=== PATIENT | male | born 1945 | race Caucasian/White ===

== ENCOUNTER → 2022-09-26 12:30 | Outpatient (BNVA) | payer MEDICARE, OTHER, SELFPAY | PROVIDERS: PCP Family Medicine; Referring Provider Family Medicine; Visit Provider Internal Medicine Cardiovascular Disease | DX: I48.0 Paroxysmal atrial fibrillation (principal); R07.9 Chest pain, unspecified | CPT/HCPCS: 93005; 99203 ==

== ENCOUNTER 2022-09-26 12:33 | Outpatient (CLI) | payer MEDICARE, OTHER, SELFPAY ==
--- NOTE | 2022-09-26 12:30 | RT.EKG_ITS ---
APPROVED REPORT Exam: Resting ECG Reason for Exam: new pt afib Patient Location: O HR:81 bpm ECG Measurements Heart Rate 81 AXIS TX 222 P 41 QRSd 120 QRS 37 QT 354 T 12 QTc 411 Conclusion Sinus rhythm...normal P axis, V-rate 50- 99 Borderline first-degree AV block Nonspecific intraventricular conduction delay...QRSd >115mS, not LBBB/RBBB No change from 2020 EKG
== END 2022-09-26 12:34 | disposition home or self-care (01) ==
LOC: DI.CARD 12:34
PROVIDERS: PCP Family Medicine; Visit Provider Internal Medicine Cardiovascular Disease
DX: I48.20 Chronic atrial fibrillation, unspecified (principal); I44.0 Atrioventricular block, first degree
CPT/HCPCS: 93010

== ENCOUNTER 2023-01-09 09:27 | Day surgery (SDC) | payer MEDICARE, OTHER, SELFPAY ==
[2023-01-09 10:00] VITALS: BP 131/83; PULSE 77; RESP 16; TEMP 36.7; O2SAT 97
[2023-01-09] MEDS: Tropicam./Phenyleph. (1/2.5%) 5 ML BTL OD ×3 (10:20→10:27)
--- NOTE | 2023-01-09 11:00 | ANES.PREOP_ITS ---
General Info Date of Service Date Performed: 01/09/23 Height: 5 ft 11 in Weight: 124.5 kg Body Mass Index (BMI): 38.2 Surgical Procedure: Operation Date: 01/09/23 12:40 Proposed Procedure Side Surgeon p Cataract Extraction with IOL Implant Right Ricky Rojas MD Meds Allergies and Home Medications Allergies Allergy/AdvReac Type Severity Reaction Status Date / Time naproxen Allergy Mild Other (See Unverified 01/09/23 10:05 Comment) prochlorperazine Allergy Mild Other (See Unverified 01/09/23 10:05 Comment) Home Medication Medication Instructions Recorded acetaminophen 325 mg capsule 650 mg PO Q6H PRN 05/23/22 aspirin 81 mg tablet,delayed 81 mg PO DAILY 05/23/22 release (Adult Low Dose Aspirin) bupropion HCl 150 mg tablet,12 hr 150 mg PO BID 05/23/22 sustained-release (Wellbutrin SR) diltiazem HCl 180 mg 180 mg PO DAILY 05/23/22 capsule,extended release 24 hr ferrous sulfate 325 mg (65 mg 325 mg PO DAILY 05/23/22 iron) tablet fluoxetine 20 mg capsule 60 mg PO DAILY 05/23/22 glucosamine-chondroitin 500 mg-400 1 tab PO BID 05/23/22 mg tablet nitroglycerin 0.4 mg sublingual 0.4 mg sublingual Q5M PRN 05/23/22 tablet omeprazole 40 mg capsule,delayed 40 mg PO DAILY 05/23/22 release oxybutynin chloride 10 mg 10 mg PO DAILY 05/23/22 tablet,extended release 24 hr saw palmetto 450 mg capsule 450 mg PO BID 05/23/22 testosterone cypionate 200 mg/mL 200 mg IM Q2W 05/23/22 intramuscular oil warfarin 5 mg tablet 7.5 mg PO DAILY 05/23/22 amoxicillin 500 mg capsule 2,000 mg PO ONCE 12/07/22 calcium carb-vit D3-minerals 600 1 tab PO BID 12/07/22 mg calcium-400 unit tablet vitamin B complex 1 cap PO DAILY 12/07/22 cascara sagrada PO .po 12/08/22 tamsulosin 0.4 mg capsule 0.4 mg PO DAILY 12/08/22 Current Visit Medications: Current Medications Generic Name Dose Route Start Last Admin Trade Name Freq PRN Reason Stop Dose Admin Acetaminophen 1,000 mg 01/09/23 08:38 Acetaminophen 500 Mg Tab PO Q4H PRN PRN Miscellaneous Medication 0 ml 01/09/23 08:38 01/09/23 10:27 Tropicam./Phenyleph. 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 Was checked in 2020, was told he didn't needto be rechecked for another 5 years. BPH w urinary obs/LUTS Chest pain chest pain at rest pt. stated was muscular not cardiac related. 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, involving the body (corpus) Glucose intolerance (impaired glucose tolerance) Klinefelter syndrome correction current use of anticoagulant Obesity AZRA (obstructive sleep apnea) Osteoporosis Phlebosclerosis Plantar nerve lesion Tremor Urinary incontinence Varicosities of leg Surgical History Surgical History H/O esophagogastroduodenoscopy H/O hernia repair Hx of total knee arthroplasty bi-lateral; 2020 and 2021 Tobacco Smoking/Tobacco Use Status: Former Tobacco Use Alcohol Alcohol Intake: former Substance Use Substance use type: does not use Vital Signs and Lab Results Vital Signs Most Recent Vital Signs in EMR: Most Recent Vital Signs Temp Pulse Resp BP Pulse Ox 36.7 C 77 16 131/83 97 01/09/23 10:00 01/09/23 10:00 01/09/23 10:00 01/09/23 10:00 01/09/23 10:00 Lab Results Blood Type / Crossmatch: No Data to Display Complete Blood Count: No Data to Display Complete Metabolic Panel: No Data to Display Liver Function Panel: No Data to Display Coagulation Panel: No Data to Display Cardiac Panel: No Data to Display Arterial Blood Gas: No Data to Display Venous Blood Gas: No Data to Display Pancreas Panel: No Data to Display Thyroid Panel: No Data to Display Infectious Disease: No Data to Display Blood Cultures: No Data to Display Toxicology Panel: No Data to Display Imaging and Studies Imaging and Studies Study information below may be from another EMR and interpreted by another provider. Please see original notes in EMR for more complete details. EKG Summary: 09/26/2022: Exam: Resting ECG Reason for Exam: new pt afib Patient Location: O HR:81 bpm ECG Measurements Heart Rate 81 AXIS AR 222 P 41 QRSd 120 QRS 37 QT 354 T12 QTc 411 Conclusion Sinus rhythm...normal P axis, V-rate 50- 99 Borderline first-degree AV block Nonspecific intraventricular conduction delay...QRSd >115mS, not LBBB/RBBB No change from 2020 EKG Anesthesia Assessment and Plan Anesthesia History Personal History: No History of Anesthesia Complications Family History: No Family History of Anesthesia Complications Exercise Tolerance Exercise Tolerance: Metabolic Equivalents>4 Cardiac & Pulmonary Exam Cardiac Exam: Normal S1/S2 Heart Sounds Pulmonary Exam: Clear Bilateral Breath Sounds Implantable Cardiac Device Does patient have a Pacemaker or an ICD?: No Airway Exam Known Difficult Airway: No Mallampati Class: 2 Mouth Opening: Normal (> 3cm) Thyromental Distance: Greater than 3 cm Neck Range of Motion: Full ROM Neck Circumference: Normal Teeth Condition: Generalized Poor Dentition ASA Classification ASA Score: ASA 3 Emergency Case?: No NPO Status NPO Status: NPO Clears >2 hours, Solids >8 hours Anesthesia Plan Resuscitation Status: Full Code Anesthesia Technique: MAC Anesthesia Airway Planned: Natural Airway Monitors Used: Standard Monitors
[2023-01-09 11:03] VITALS: BMI 38.2
[2023-01-09] MEDS: Balanced Salt Soln.-PLUS 500 ML BAG (11:46)
[2023-01-09] MEDS: Lidocaine 1% Pres-Free 5 ML VIAL (11:48)
[2023-01-09] MEDS: Duovisc Viscoelastic System EACH 1 EACH (11:48)
[2023-01-09] MEDS: Phenylephrine/Lidocaine (15/10) MG/ML 1 ML VIAL (11:50)
[2023-01-09] MEDS: Povidone-Iodine Ophth 30 ML BTL (11:51)
[2023-01-09] MEDS: Tetracaine 0.5% 4 ML BTL OD (12:01)
[2023-01-09 12:10] VITALS: BP 147/96; PULSE 81; RESP 16; TEMP 36.5; O2SAT 96
--- NOTE | 2023-01-09 12:11 | W.PM.DSUDISC ---
Date of service: 01/09/23 Time of Service: 12:12 Discharge Plan Disposition Patient Disposition: Home Discharge Details Attending Provider: Ricky Rojas Primary Care Provider: Jignesh Luna [place] Meds and New Rx's Prescriptions: No Action amoxicillin 500 mg capsule 2,000 mg PO ONCE Rx Instructions: 1 hour prior to dental appointment vitamin B complex Capsule 1 cap PO DAILY cascara sagrada PO .po tamsulosin 0.4 mg capsule 0.4 mg PO DAILY warfarin 5 mg tablet 7.5 mg PO DAILY acetaminophen 325 mg capsule 650 mg PO Q6H PRN aspirin [Adult Low Dose Aspirin] 81 mg tablet,delayed release (DR/EC) 81 mg PO DAILY bupropion HCl [Wellbutrin SR] 150 mg tablet sustained-release 12 hr 150 mg PO BID glucosamine-chondroitin 500-400 mg tablet 1 tab PO BID testosterone cypionate 200 mg/mL oil 200 mg IM Q2W diltiazem HCl 180 mg capsule,extended release 24hr 180 mg PO DAILY ferrous sulfate 325 mg (65 mg iron) tablet 325 mg PO DAILY fluoxetine 20 mg capsule 60 mg PO DAILY nitroglycerin 0.4 mg tablet, sublingual 0.4 mg sublingual Q5M PRN Rx Instructions: do not exceed 3 doses per episode omeprazole 40 mg capsule,delayed release(DR/EC) 40 mg PO DAILY oxybutynin chloride 10 mg tablet extended release 24hr 10 mg PO DAILY saw palmetto 450 mg capsule 450 mg PO BID Rx Instructions: give with food (meal/snack) calcium carbonate-vit D3-min 600 mg calcium- 400 unit tablet 1 tab PO BID Discharge Instructions Stand Alone Forms: Post-op Block Cataract, Post-op Topical Cataract, Wilman Poeey (DSU) Discharge Orders Discharge Orders: Discharge Order (Routine); Ordered 01/09/23 Ordered By: Ricky Rojas DS: Diagnosis Discharge Diagnosis (1) Posterior subcapsular age-related cataract, right eye: Status: Resolved (2) Nuclear age-related cataract, right eye: Status: Resolved
--- NOTE | 2023-01-09 12:12 | ROE_ITS ---
Date of service: 01/09/23 Time of Service: 12:12 Operative Note Operative Note DATE OF PROCEDURE: 01/09/23 PRE-OP DIAGNOSIS: Nuclear/posterior subcapsular cataract, right eye Pseudoexfoliation, right eye Poorly dilating pupil, right eye POST-OP DIAGNOSIS: same PROCEDURE: Cataract extraction using phacoemulsification with intraocular lens implant, right eye SURGEON: Ricky Rojas ANESTHESIA TYPE: Local By Surgeon and MAC Refer to Anesthesia Record ESTIMATED BLOOD LOSS: 0 PATHOLOGY: none sent COMPLICATIONS: None Patient was transported to: same day Patient's condition: stable Implants: Carlos Enrique Clareon [id number] Indications: Progressive decreased vision due to cataract, right eye Procedure Description: CATARACT SURGERY OPERATIVE REPORT PREOPERATIVE DIAGNOSIS: Nuclear/posterior subcapsular cataract, right eye Pseudoexfoliation, right eye Poorly dilating pupil, right eye POSTOPERATIVE DIAGNOSIS: Same OPERATION: Cataract extraction using phacoemulsification with posterior chamber intraocular lens implant, right eye. Pupillary dilation and iris stabilization with 7.0 mm pupillary expansion device Insertion of capsular tension ring, Morcher Type 15 IOL: IOL Machine Puller/Model: Carlos Enrique Clareon [id number] IOL Power: + 23.5 diopters IOL Serial Number: [id number] Optic Diameter: 6.0mm Haptic/Overall Diameter: 13.0mm PHACO INFO: Carlos Enrique Centurion Vision System with OZil and Active Fluidics Cumulative Dispersed Energy (CDE): 10.45 seconds SURGEON: Ricky Rojas MD, MITUL ANESTHESIA: Monitored Anesthesia Care (MAC), with local sub-tenon's anesthetic infiltration COMPLICATIONS: None SPECIMENS: None INDICATIONS FOR PROCEDURE: The patient is a 77-year-old gentleman with history of diminished visual acuity in his right eye secondary to the development of nuclear/posterior subcapsular cataract. 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 The option of cataract surgery was offered to the patient and he wished to proceed. PROCEDURE: The correct surgical eye was identified and marked as the right eye and the pupil was dilated in the preoperative area using mydriatics and cycloplegics. The dilated pupil size was 4.0 mm. The patient elected to proceed without oral sedation. The patient was brought to the operating room where cardiopulmonary monitoring was instituted and surgical time-out was per formed, confirming the correct operative eye and IOL power. Topical anesthesia was administered and ophthalmic povidone-iodine 5% was instilled into the conjunctival fornices. Lidocaine gel was applied to the cornea and the tyrell-ocular area was prepped with Betadine 10% solution and draped in the usual sterile fashion for intraocular surgery, including an aperture drape. A Tegaderm transparent film dressing was cut in half and used to cover the lashes and lid margins. Care was taken to sequester the lashes and lid margins under the Tegaderm dressing. A lid speculum was placed between the lids of the operative eye and the Yasmin-Annia operating microscope was maneuvered into position. Noe scissors were then used to make a conjunctival buttonhole approximately 6mm posterior to the limbus in the inferonasal quadrant. Blunt dissection was carried out to expose bare sclera, and a blunt-tipped sub-tenon?s anesthesia cannula was introduced and passed posteriorly along the globe where non- preserved plain lidocaine was injected into posterior sub-Tenon?s space. A sideport knife was used to make a paracentesis port inferiortemporally. Intraocular phenylephrine/lidocaine was injected into the anterior chamber. The anterior chamber was then filled with viscoelastic. A keratome knife was used to construct a two--plane near-clear corneal tunnel extending 2.0mm into clear cornea in the superiortemporal position.. A 7.0 mm pupillary expansion device was inserted into the pupillary space and engaged with the Kuglen hook. A flap was raised on the anterior capsule and capsulorhexis forceps were used to complete a continuous curvilinear capsulorhexis of 5.0 mm. The anterior capsule was noted to be quite thin. A significant amount of capsular wrinkling was noted during capsulorrhexis creation, indicating moderate to severe generalized zonular laxity. Balanced salt solution was then used to perform cortical cleaving hydrodissection and nuclear hydrodelineation until the lens could be freely rotated within the capsular bag. The lens nucleus was then disassembled and removed within the capsular bag and iris plane using phacoemulsification. Residual cortical material was removed using the I/A handpiece. The posterior capsule was carefully polished to remove as much residual lens epithelial cells as safely possible. The capsular bag was then inflated and the anterior chamber deepened with viscoelastic. A Morcher Type 15 capsular tension ring was then inserted into the capsular bag without difficulty, to prevent capsular phimosis postoperatively. The lens implant described above was inserted into the capsular bag using the Carlos Enrique Autonome Injector. A Kuglen hook was used to dial the IOL into position. The pupillary expansion device was removed in the r everse order of its insertion. Residual viscoelastic was then removed first from posterior to the IOL, then from the anterior chamber using the I/A handpiece. The lens implant was noted to center nicely within the capsular bag. The incisions were stromally hydrated, and the anterior chamber was reformed using BSS. Then 0.5cc of moxifloxacin 1.0mg/ml were injected into the capsular bag and anterior chamber. The incisions were checked with a Weck spear and found to be secure. Several drops of ophthalmic povidone-iodine 5% were then applied to the eye followed by two drops of Imprimis combination prednisolone/moxifloxacin/nepafenac solution. The drapes were removed and a clear plastic protective eye shield was placed over the eye. The patient was then returned to Same Day Surgery in stable condition.
--- NOTE | 2023-01-09 12:29 | W.ANESPOSTOP ---
Postoperative Evaluation Date, Time and Location Date Performed: 01/09/23 Time Performed: 12:29 Patient Location: Day Surgery Unit Vital Signs Most Recent Imported Vital Signs: Most Recent Vital Signs Temp Pulse Resp BP Pulse Ox 36.7 C 77 16 131/83 97 01/09/23 10:00 01/09/23 10:00 01/09/23 10:00 01/09/23 10:00 01/09/23 10:00 Most Recent Manually Entered Vital Signs: Adult Blood Pressure: 147/96 Heart Rate: 81 Respirations: 16 Oxygen Saturation (%): 96 Temperature (C): 36.5 C Pain Score (0-10 Scale): 0 Assessment Mental Status: Awake (Alert & Oriented to Patient Baseline) Airway and Respiratory Function: Patent airway with normal (patient baseline) respiratory exam Cardiovascular Function: Hemodynamically Stable Hydration Status: Adequately Hydrated Nausea & Vomiting: No Nausea or Vomiting Pain: Pt. Denies Any Pain Peripheral Nerve Block: Patient did not receive a nerve block
[2023-01-09 13:30] VITALS: BP 147/96; PULSE 81; RESP 16; TEMPC 36.5; O2SAT 96
== END 2023-01-09 13:00 | disposition home or self-care (01) ==
PROVIDERS: PCP Family Medicine; Visit Provider Ophthalmology
PROC: (CPT 66982; principal; 2023-01-09 12:30)
DX: H25.041 Posterior subcapsular polar age-related cataract, right eye (principal); H25.11 Age-related nuclear cataract, right eye; H57.09 Other anomalies of pupillary function
CPT/HCPCS: 66982; V2632

== ENCOUNTER 2023-07-17 10:53 | Day surgery (SDC) | payer MEDICARE, OTHER, SELFPAY ==
[2023-07-17] MEDS: Tropicam./Phenyleph. (1/2.5%) 5 ML BTL OS ×3 (11:38→11:56)
[2023-07-17 11:40] VITALS: BP 137/83; PULSE 88; RESP 20; TEMP 36.6; O2SAT 96
--- NOTE | 2023-07-17 11:55 | ANES.PREOP_ITS ---
General Info Date of Service Date Performed: 07/17/23 Height: 5 ft 10 in Weight: 125.1 kg Body Mass Index (BMI): 39.5 Surgical Procedure: Operation Date: 07/17/23 12:55 Proposed Procedure Side Surgeon p Cataract Extraction with IOL Implant Left Ricky Rojas MD Meds Allergies and Home Medications Allergies Allergy/AdvReac Type Severity Reaction Status Date / Time naproxen Allergy Mild Other (See Unverified 07/17/23 11:35 Comment) prochlorperazine Allergy Mild Other (See Unverified 07/17/23 11:35 Comment) Home Medication Medication Instructions Recorded acetaminophen 325 mg capsule 650 mg PO Q6H PRN 05/23/22 aspirin 81 mg tablet,delayed 81 mg PO DAILY 05/23/22 release (Adult Low Dose Aspirin) bupropion HCl 150 mg tablet,12 hr 150 mg PO BID 05/23/22 sustained-release (Wellbutrin SR) diltiazem HCl 180 mg 180 mg PO DAILY 05/23/22 capsule,extended release 24 hr ferrous sulfate 325 mg (65 mg 325 mg PO DAILY 05/23/22 iron) tablet fluoxetine 20 mg capsule 60 mg PO DAILY 05/23/22 glucosamine-chondroitin 500 mg-400 1 tab PO BID 05/23/22 mg tablet nitroglycerin 0.4 mg sublingual 0.4 mg sublingual Q5M PRN 05/23/22 tablet omeprazole 40 mg capsule,delayed 40 mg PO DAILY 05/23/22 release oxybutynin chloride 10 mg 10 mg PO DAILY 05/23/22 tablet,extended release 24 hr saw palmetto 450 mg capsule 450 mg PO BID 05/23/22 testosterone cypionate 200 mg/mL 200 mg IM Q2W 05/23/22 intramuscular oil warfarin 5 mg tablet 7.5 mg PO DAILY 05/23/22 amoxicillin 500 mg capsule 2,000 mg PO ONCE 12/07/22 calcium carb-vit D3-minerals 600 1 tab PO BID 12/07/22 mg calcium-400 unit tablet vitamin B complex 1 cap PO DAILY 12/07/22 cascara sagrada 1 tab PO DIRECTED 12/08/22 tamsulosin 0.4 mg capsule 0.4 mg PO DAILY 12/08/22 Current Visit Medications: Current Medications Generic Name Dose Route Start Last Admin Trade Name Freq PRN Reason Stop Dose Admin Acetaminophen 1,000 mg 07/17/23 06:00 Acetaminophen 500 Mg Tab PO 08/16/23 05:59 Q4H PRN PRN Balanced Salt Solution 500 ml 07/17/23 06:00 Balanced Salt Soln.-Plus 500 Ml Bag OP 08/16/23 05:59 DIRECTED REINA Miscellaneous Medication 0 ml 07/17/23 06:00 Prednisolone 1%, Moxifloxacin 0.5%, Nepafenac 0.1% 5ml Btl OS 08/16/23 05:59 DIRECTED [facility] Miscellaneous Medication 0 ml 07/17/23 06:00 07/17/23 11:43 Tropicam./Phenyleph. 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 Was checked in 2020, was told he didn't needto be rechecked for another 5 years. BPH w urinary obs/LUTS Chest pain chest pain at rest pt. stated was muscular not cardiac related. 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 Obesity AZRA (obstructive sleep apnea) Osteoporosis Phlebosclerosis Plantar nerve lesion Tremor Urinary incontinence Varicosities of leg Surgical History Surgical History H/O esophagogastroduodenoscopy H/O hernia repair Hx of total knee arthroplasty bi-lateral; 2020 and 2021 Tobacco Smoking/Tobacco Use Status: Former Tobacco Use Alcohol Alcohol Intake: former Substance Use Substance use: Never Substance use type: does not use Vital Signs and Lab Results Vital Signs Most Recent Vital Signs in EMR: Most Recent Vital Signs Temp Pulse Resp BP Pulse Ox 36.6 C 88 20 137/83 96 07/17/23 11:40 07/17/23 11:40 07/17/23 11:40 07/17/23 11:40 07/17/23 11:40 Lab Results Blood Type / Crossmatch: No Data to Display Complete Blood Count: No Data to Display Complete Metabolic Panel: No Data to Display Liver Function Panel: No Data to Display Coagulation Panel: No Data to Display Cardiac Panel: No Data to Display Arterial Blood Gas: No Data to Display Venous Blood Gas: No Data to Display Pancreas Panel: No Data to Display Thyroid Panel: No Data to Display Infectious Disease: No Data to Display Blood Cultures: No Data to Display Toxicology Panel: No Data to Display Imaging and Studies Imaging and Studies Study information below may be from another EMR and interpreted by another provider. Please see original notes in EMR for more complete details. EKG Summary: 09/26/2022: Exam: Resting ECG Reason for Exam: new pt afib Patient Location: O HR:81 bpm ECG Measurements Heart Rate 81 AXIS UT 222 P 41 QRSd 120 QRS 37 QT 354 T12 QTc 411 Conclusion Sinus rhythm...normal P axis, V-rate 50- 99 Borderline first-degree AV block Nonspecific intraventricular conduction delay...QRSd >115mS, not LBBB/RBBB No change from 2020 EKG Anesthesia Assessment and Plan Anesthesia History Personal History: No History of Anesthesia Complications Family History: No Family History of Anesthesia Complications Exercise Tolerance Exercise Tolerance: Metabolic Equivalents>4 Pertinent Negatives Pertinent Negatives: No Symptoms of GERD, No Major Cardiovascular Symptoms or Complaints and No Major Pulmonary Symptoms or Complaints Cardiac & Pulmonary Exam Cardiac Exam: Normal S1/S2 Heart Sounds Pulmonary Exam: Clear Bilateral Breath Sounds Implantable Cardiac Device Does patient have a Pacemaker or an ICD?: No Airway Exam Known Difficult Airway: No Mallampati Class: 2 Mouth Opening: Normal (> 3cm) Thyromental Distance: Greater than 3 cm Neck Range of Motion: Full ROM Neck Circumference: Normal Teeth Condition: Generalized Poor Dentition ASA Classification ASA Score: ASA 3 Emergency Case?: No NPO Status NPO Status: NPO Clears >2 hours, Solids >8 hours Anesthesia Plan Resuscitation Status: Full Code Anesthesia Technique: MAC Anesthesia Airway Planned: Natural Airway Monitors Used: Standard Monitors
[2023-07-17 12:26] VITALS: BMI 39.5
[2023-07-17] MEDS: Tetracaine 0.5% 4 ML BTL OS (12:44)
[2023-07-17] MEDS: Lidocaine 1% Pres-Free 5 ML VIAL (12:45)
[2023-07-17] MEDS: Duovisc Viscoelastic System EACH 1 EACH (12:46)
[2023-07-17] MEDS: Phenylephrine/Lidocaine (15/10) MG/ML 1 ML VIAL (12:47)
[2023-07-17] MEDS: Povidone-Iodine Ophth 30 ML BTL (12:48)
[2023-07-17 13:02] VITALS: BP 144/82; PULSE 81; RESP 18; TEMP 36.7; O2SAT 95
--- NOTE | 2023-07-17 13:02 | PDOC.DSDIS_ITS ---
Date of service: 07/17/23 Time of Service: 13:02 Discharge Plan Disposition Patient Disposition: Home Discharge Details Attending Provider: Ricky Rojas Primary Care Provider: Jignesh Luna [place] Meds and New Rx's Prescriptions: No Action amoxicillin 500 mg capsule 2,000 mg PO ONCE Rx Instructions: 1 hour prior to dental appointment vitamin B complex Capsule 1 cap PO DAILY cascara sagrada 1 tab PO DIRECTED tamsulosin 0.4 mg capsule 0.4 mg PO DAILY warfarin 5 mg tablet 7.5 mg PO DAILY acetaminophen 325 mg capsule 650 mg PO Q6H PRN aspirin [Adult Low Dose Aspirin] 81 mg tablet,delayed release (DR/EC) 81 mg PO DAILY bupropion HCl [Wellbutrin SR] 150 mg tablet sustained-release 12 hr 150 mg PO BID glucosamine-chondroitin 500-400 mg tablet 1 tab PO BID testosterone cypionate 200 mg/mL oil 200 mg IM Q2W diltiazem HCl 180 mg capsule,extended release 24hr 180 mg PO DAILY ferrous sulfate 325 mg (65 mg iron) tablet 325 mg PO DAILY fluoxetine 20 mg capsule 60 mg PO DAILY nitroglycerin 0.4 mg tablet, sublingual 0.4 mg sublingual Q5M PRN Rx Instructions: do not exceed 3 doses per episode omeprazole 40 mg capsule,delayed release(DR/EC) 40 mg PO DAILY oxybutynin chloride 10 mg tablet extended release 24hr 10 mg PO DAILY saw palmetto 450 mg capsule 450 mg PO BID Rx Instructions: give with food (meal/snack) calcium carbonate-vit D3-min 600 mg calcium- 400 unit tablet 1 tab PO BID Discharge Instructions Stand Alone Forms: Post-op Topical CataractWilman (DSU) Discharge Orders Discharge Orders: Discharge Order (Routine); Ordered 07/17/23 Ordered By: Ricky Rojas DS: Diagnosis Discharge Diagnosis (1) Posterior subcapsular age-related cataract of left eye: Status: Resolved (2) Nuclear age-related cataract, left eye: Status: Resolved
--- NOTE | 2023-07-17 13:03 | W.PM.OP ---
Date of service: 07/17/23 Time of Service: 13:03 Operative Note Operative Note DATE OF PROCEDURE: 07/17/23 PRE-OP DIAGNOSIS: Nuclear/posterior subcapsular cataract, left eye Poorly dilating pupil, left eye, secondary to pseudoexfoliation POST-OP DIAGNOSIS: same PROCEDURE: Cataract extraction using phacoemulsification with intraocular lens implant, left eye Pupillary dilation and iris stabilization using pupillary expansion device SURGEON: Ricky Rojas ANESTHESIA TYPE: Local By Surgeon and MAC Refer to Anesthesia Record PATHOLOGY: none sent COMPLICATIONS: None Patient was transported to: same day Patient's condition: stable Implants: Carlos Enrique Clareon [id number] Indications: Progressive decreased vision due to cataract, left eye Procedure Description: CATARACT SURGERY OPERATIVE REPORT PREOPERATIVE DIAGNOSIS: Nuclear/posterior subcapsular cataract, left eye Poorly dilating pupil, 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 pupillary dilation and iris stabilization using pupillary expansion device IOL: IOL Medical Library Assistant/Model: Carlos Enrique Clareon [id number] IOL Power: + 25.0 diopters IOL Serial Number: [id number] Optic Diameter: 6.0mm Haptic/Overall Diameter: 13.0mm PHACO INFO: Carlos Enrique [employer]ion Vision System with OZil and Active Fluidics Cumulative Dispersed Energy (CDE): 13.51 seconds SURGEON: Ricky Rojas MD, MITUL ANESTHESIA: Monitored Anesthesia Care (MAC), with local sub-tenon's anesthetic infiltration COMPLICATIONS: None SPECIMENS: None INDICATIONS FOR PROCEDURE: Patient is a 78-year-old male with history of diminished visual acuity in his left eye secondary to the development of nuclear/posterior subcapsular cataract. He has a history of pseudoexfoliation, right eye greater than left. He has previously undergone cataract surgery in the right eye, requiring the use of pupillary expansion device and capsular tension ring. He now presents for cataract surgery in the left eye to improve and maximize his vision. See office notes for detailed information. PROCEDURE: The correct surgical eye was identified and marked as the left eye and the pupil was dilated in the preoperative area using mydriatics and cycloplegics. The dilated pupil size was 4.0 mm. The patient elected to proceed without oral sedation. The patient was brought to the operating room where cardiopulmonary monitoring was instituted and surgical time-out was performed, confirming the correct operative eye and IOL power. Topical anesthesia was administered and ophthalmic povidone-iodine 5% was instilled into the conjunctival fornices. The tyrell-ocular area was prepped with Betadine 10% solution and draped in the usual sterile fashion for intraocular surgery, including an aperture drape. A Tegaderm transparent film dressing was cut in half and used to cover the lashes and lid margins. Care was taken to sequester the lashes and lid margins under the Tegaderm dressing. A lid speculum was placed between the lids of the operative eye and the Carlos Enrique Lux[employer] Rev[employer] operating microscope was maneuvered into position. Noe scissors were then used to make a conjunctival buttonhole approximately 6mm posterior to the limbus in the inferonasal quadrant. Blunt dissection was carried out to expose bare sclera, and a blunt-tipped sub-tenon?s anesthesia cannula was introduced and passed posteriorly along the globe where non-preserved plain lidocaine was injected into posterior sub-Tenon?s space. A sideport knife was used to make a paracentesis port. Intraocular phenylephrine/lidocaine was injected into the anterior chamber. The anterior chamber was then filled with viscoelastic. Viscoat was used to deepen the anterior chamber, with an aqueous depth of only approximately 1.7 mm preoperatively. A keratome knife was used construct a two-plane clear corneal tunnel extending 2.0mm into clear cornea. A 7.0 mm pupillary expansion device was inserted into the pupillary space and engaged with a Kuglen hook. A flap was raised on the anterior capsule and capsulorhexis forceps were used to complete a continuous curvilinear capsulorhexis of 5.0 mm. Only mild zonular laxity was noted. Balanced salt solution was then used to perform cortical cleaving hydrodissection and nuclear hydrodelineation until the lens could be freely rotated within the capsular bag. The lens nucleus was then disassembled and removed within the capsular bag and iris plane using phacoemulsification. Residual cortical material was removed using the irrigation/aspiration handpiece. The posterior capsule was carefully polished to remove as much residual lens epithelial cells as safely possible. The capsular bag was then inflated and the anterior chamber deepened with viscoelastic. The lens implant described above was inserted into the capsular bag using the Carlos Enrique Autonome Injector. A Kuglen hook was used to dial the IOL into position. The pupil expansion device was then removed in the reverse order of its insertion. Residual viscoelastic was then removed first from posterior to the IOL, then from the anterior chamber using the I/A handpiece. The lens implant was noted to center nicely within the capsular bag. The incisions were stromally hydrated, and the anterior chamber was reformed using BSS. Then 0.5cc of moxifloxacin 1.0mg/ml were injected into the capsular bag and anterior chamber. The incisions were checked with a Weck spear and found to be secure. Several drops of ophthalmic povidone-iodine 5% were then applied to the eye followed by two drops of Imprimis combination prednisolone/moxifloxacin/nepafenac solution. The drapes were removed and a clear plastic protective eye shield was placed over the eye. The patient was then returned to Same Day Surgery in stable condition.
--- NOTE | 2023-07-17 14:07 | W.ANESPOSTOP ---
Postoperative Evaluation Date, Time and Location Date Performed: 07/17/23 Time Performed: 13:15 Patient Location: Day Surgery Unit Vital Signs Most Recent Imported Vital Signs: Most Recent Vital Signs Temp Pulse Resp BP Pulse Ox 36.6 C 88 20 137/83 96 07/17/23 11:40 07/17/23 11:40 07/17/23 11:40 07/17/23 11:40 07/17/23 11:40 Most Recent Manually Entered Vital Signs: Adult Blood Pressure: 144/82 Heart Rate: 58 Respirations: 18 Oxygen Saturation (%): 95 Temperature (C): 36.7 C Pain Score (0-10 Scale): 0 Assessment Mental Status: Awake (Alert & Oriented to Patient Baseline) Airway and Respiratory Function: Patent airway with normal (patient baseline) respiratory exam Cardiovascular Function: Hemodynamically Stable Hydration Status: Adequately Hydrated Nausea & Vomiting: No Nausea or Vomiting Pain: Pt. Denies Any Pain Peripheral Nerve Block: Patient did not receive a nerve block
[2023-07-17 14:09] VITALS: BP 144/82; PULSE 58; RESP 18; TEMPC 36.7; O2SAT 95
== END 2023-07-17 13:32 | disposition home or self-care (01) ==
LOC: SUR 10:53
PROVIDERS: PCP Family Medicine; Visit Provider Ophthalmology
PROC: (CPT 66982; principal; 2023-07-17 12:45)
DX: H25.042 Posterior subcapsular polar age-related cataract, left eye (principal); H25.12 Age-related nuclear cataract, left eye; I48.0 Paroxysmal atrial fibrillation; Z98.41 Cataract extraction status, right eye
CPT/HCPCS: 66982; V2632